=== PATIENT | female | born 1985 | race Caucasian/White ===

== ENCOUNTER 2021-10-05 13:39 | Outpatient (REF) | payer OTHER, SELFPAY ==
[2021-10-11 12:56] LABS: HPV mRNA E6/E7 rflx Not Detected (Not Detected)
== END 2021-10-05 13:40 | disposition home or self-care (01) ==
LOC: HO.LAB 13:39
PROVIDERS: Visit Provider Advanced Practice Midwife
DX: Z01.419 Encounter for gynecological examination (general) (routine) without abnormal findings (principal); Z11.51 Encounter for screening for human papillomavirus (HPV); Z88.1 Allergy status to other antibiotic agents; Z91.040 Latex allergy status; Z97.5 Presence of (intrauterine) contraceptive device
CPT/HCPCS: 87624; 88142

== ENCOUNTER 2022-10-11 09:40 | Outpatient (REF) | payer OTHER, SELFPAY ==
[2022-10-11 11:25] LABS: HBc Num1 0.09 S/CO (0.00-0.79); HIV AB/AG Nonreactive (Nonreactive); HIV Num 1 0.06 S/CO (0.00-0.99); Hepatitis B Core Antibody Nonreactive (Nonreactive); ~HepC Num1 0.06 S/CO (0.00-0.79); ~Hepatitis C Antibody Nonreactive (Nonreactive)
== END 2022-10-11 09:41 | disposition home or self-care (01) ==
LOC: HO.LAB 09:40
PROVIDERS: Visit Provider Advanced Practice Midwife
DX: Z20.2 Contact with and (suspected) exposure to infections with a predominantly sexual mode of transmission (principal); Z11.4 Encounter for screening for human immunodeficiency virus [HIV]
CPT/HCPCS: 36415; 86704; 86803; 87389

== ENCOUNTER 2023-11-21 10:18 | Outpatient (AMB) | payer OTHER, SELFPAY ==
--- NOTE | 2023-11-21 10:21 | A.OFFVIS_ITS ---
Intake Vital Signs 11/21/23 10:22 Height 5 ft 5 in Weight 159 lb BMI 26.5 BP 104/60 Intake Visit Reasons: Annual Supervisor Instrument Mechanics: Supervisor Instrument Mechanics Present (Maria L) Allergies erythromycin base [ERYTHROMYCIN BASE] Allergy (Mild, Verified 11/21/23 10:22) RASH latex [LATEX] Allergy (Mild, Verified 11/21/23 10:22) ITCHING HPI HPI Comments History of Present Illness Details She is a premenopausal woman presenting for annual examination. Doing well with no concerns. Rectal bleeding for a few months, after episode of loose stools and Covid, looking for a PCP for a referal. She tries to eat healthy and stays active with exercise. Rare bleeding with her Nery IUD. Currently is sexually active. She denies vaginal itching and irritation. STI screening offered; she declines. Denies family history of breast, ovarian or colon cancer. Last pap smear 2021, negative. 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[employer] Sexual orientation: Straight/Heterosexual Gender identity: Female Female Reproductive History Menstrual control method: progestin IUCD (Mirena 11/07/17) Total pregnancies: 3 Full term: 2 Number of Living Children: 2 Date of last pap smear: 10/05/21 (neg pap and hpv) Review of Systems Const All systems reviewed & are unremarkable except as noted in HPI and below Reports as per HPI Eyes Reports no additional complaints ENT Reports no additional complaints Card Reports no additional complaints Resp Reports no additional complaints GI Reports as per HPI and Reports no additional complaints Reports as per HPI Musc Reports no additional complaints Skin/Breast Reports as per HPI Neuro Reports no additional complaints Psych Reports no additional complaints Endo Reports no additional complaints Trino/Lymph Reports no additional complaints Aller/Immun Reports no additional complaints Physical Exam Vital Signs: Last Vital Signs BP 104/60 11/21/23 10:22 BMI result Body Mass Index 26.5 Const General: cooperative, healthy appearing, no acute distress, well developed and alert Orientation/consciousness: patient oriented x3 HEENT Head: Yes normal to inspection Eyes General: appearance normal, both eyes and all related structures Neck Neck: Yes normal visual inspection Thyroid: Thyroid normal Chest Chest palpation & inspection: normal inspection of the chest and other (no puckering, dimpling, peau de orange, retraction, discharge, masses) Breast/axilla inspection: normal inspection of the breasts Breast/axilla palpation: normal palpation of the breasts Resp Effort & Inspection: normal respiratory effort GI Inspection: Yes normal to inspection Palpation (GI): Soft to palpation Rectal Exam - Female: deferred General: Yes bladder normal to palpation External Female Exam: normal external appearance and normal appearance of the urethra Speculum Exam - Vagina: normal appearance of the vagina, normal palpation and normal vaginal discharge Speculum Exam - Cervix: normal appearance of the cervix, normal palpation and Other cervical findings present (IUD string short at os) Bimanual exam- vagina & uterus: normal bimanual exam, normal palpation, uterine size normal, bladder normal to palpation, normal palpation and non-tender Bimanual Exam- Adnexa, other: no masses Skin General skin exam: no rashes or lesions noted Rashes: no rashes Neuro General: patient oriented x3 Cognition (Neuro): normal cognition Extrem General: Yes normal to inspection Psych Attitude: cooperative Thought process: Normal thought process present Assessment & Plan Assessment & Plan (1) Encounter for well woman exam with routine gynecological exam: Code(s): Z01.419 - Encounter for gynecological examination (general) (routine) without abnormal findings Plan Discussed: Current recommendations for pap smears per ASCCP guidelines. Breast awareness and periodic breast exams. Maintain a healthy lifestyle including a well balanced diet and routine exercise. Referral to GI placed. Patient verbalizes understanding and agrees to the plan of care. She was given opportunity to ask questions and all questions were answered to the best of my ability. RTO in one year for annual negative restorer examination. This note is constructed using voice recognition software. While every effort has been made to ensure accuracy, special education science teacher errors may have been included. Orders: Orders MM tomosynthesis screening BI 06/23/24 Z12.31 - Encounter for screening mammogram for malignant neoplasm of breast Referrals Gastroenterology Referral K62.5 - Hemorrhage of anus and rectum Coding Level of Care Code Est Pt Prev Care 18-39y(49350) Diagnoses Encounter for well woman exam with routine gynecological exam Z01.419
[2023-11-21 10:22] VITALS: BP 104/60; BMI 26.5
== END 2023-11-21 10:48 | disposition home or self-care (01) ==
LOC: HO.HWS 10:19
PROVIDERS: Visit Provider Advanced Practice Midwife
DX: Z01.419 Encounter for gynecological examination (general) (routine) without abnormal findings (principal)
CPT/HCPCS: 99395

== ENCOUNTER → 2023-11-21 10:18 | Outpatient (BNVA) | payer OTHER, SELFPAY | PROVIDERS: Visit Provider Advanced Practice Midwife ==

== ENCOUNTER 2023-12-19 10:11 | Outpatient (AMB) | payer OTHER, SELFPAY ==
--- NOTE | 2023-12-19 10:15 | A.OFFVIS_ITS ---
Intake Vital Signs 12/19/23 10:16 Height 5 ft 5 in Weight 153 lb BMI 25.5 BP 125/87 Blood Pressure Location Lt brachial Position Sitting Pulse 105 H Intake Visit Reasons: Hemorrhage of anus and rectum Intake Note: Patient new consult for Hemorrhage of anus rectum Patient cc: bright rectal bleeding on and off, abdominal bloating, hemorrhoids but patient said the blood is not from that denies any other GI issues Labor Arbitrator Hearing Office Required: No Accompanied by: Self / Same As Patient Allergies erythromycin base [ERYTHROMYCIN BASE] Allergy (Mild, Verified 12/19/23 10:15) RASH latex [LATEX] Allergy (Mild, Verified 12/19/23 10:15) ITCHING HPI HPI Comments History of Present Illness Details A 38 y/o female BRBPR-she has blood actually in the stool-bloating - softer stool- she does have hemorrhoids- this is different- since September-this is anxiety producing No fam hx IBD- Appetite is good no other GI concerns No respiratory or cardiac No nausea, vomiting, hematemesis, fever or chills PFSH Surgical History Hx of section Hx of dilation and curettage Social History Household Members Other:: 2 kids Alcohol intake: current Alcohol intake frequency: a few times a week Patient Tobacco Use Status: Never used Tobacco Current occupational status: employed 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 Gender identity: Female Review of Systems Const All systems reviewed & are unremarkable except as noted in HPI and below Card Denies chest pain and Denies dyspnea Resp Denies dyspnea GI Denies abdominal pain and Reports hematochezia Physical Exam Vital Signs: Last Vital Signs Pulse 105 H 12/19/23 10:16 BP 125/87 12/19/23 10:16 BMI result Body Mass Index 25.5 Const General: cooperative, healthy appearing, comfortable, no acute distress and anxious Orientation/consciousness: patient oriented x3 Limitations: no limitations Resp Effort & Inspection: normal respiratory effort and able to speak in complete sentences Auscultation: clear to auscultation bilaterally, no rales, no rhonchi and no wheezes GI Palpation (GI): Soft to palpation and nontender Auscultation: normal bowel sounds Skin General skin exam: no rashes or lesions noted Neuro General: patient oriented x3 Extrem General: Yes full ROM Psych Appearance: grossly normal and well kempt Mental Status: mental status grossly normal Speech and movement: Normal speech and movement present Affect: normal affect Attitude: cooperative Thought process: Normal thought process present Thought content: Normal thought content present Assessment & Plan Assessment & Plan (1) Rectal bleeding: Comment: Very pleasant 38-year-old female hematochezia past few months- May be hemorrhoidal, rule out IBD Code(s): K62.5 - Hemorrhage of anus and rectum (2) Hematochezia: Code(s): K92.1 - Melena Plan: fecal marco CBC CMP ESR Plan dx Colonoscopy Orders: Orders Comprehensive Met. Panel 12/19/23 K58.9 - Irritable bowel syndrome without diarrhea Calprotectin, Fecal 12/19/23 K62.5 - Hemorrhage of anus and rectum, K92.1 - Melena C Reactive Protein 12/19/23 K62.5 - Hemorrhage of anus and rectum, K92.1 - Me magui Complete Blood Count Auto Diff 12/19/23 K62.5 - Hemorrhage of anus and rectum Erythrocyte Sedimentation Rate 12/19/23 K62.5 - Hemorrhage of anus and rectum, K92.1 - Melena Medications: New bisacodyl (Dulcolax (bisacodyl)) Day before procedure @ 12 noon Take 4 tablets by mouth followed by large glass of water 20 mg (4 x 5 mg) PO ONCE PRN 4 tabs 0RF colonoscopy prep 1 day Z12.11 - Encounter for screening for malignant neoplasm of colon polyethylene glycol 3350 (Miralax) Take as directed by mouth the day before your procedure. 238 grams PO ONCE PRN 238 grams 0RF laxative effect 1 day Patient Instructions: Diagnostic colonoscopy r/o IBD-maybe hemorrhoidal MiraLax Gatorade prep-reviewed literature given fecal marco CBC CMP ESR Encouraged to call questions or concerns Coding Level of Care Code Tele New Pt Level 3 (35382) Diagnoses Rectal bleeding K62.5 Hematochezia K92.1 Time Spent (min) 30
[2023-12-19 10:16] VITALS: BP 125/87; PULSE 105; BMI 25.5
== END 2023-12-19 11:08 | disposition home or self-care (01) ==
PROVIDERS: Visit Provider Physician Assistant
DX: K62.5 Hemorrhage of anus and rectum (principal)
CPT/HCPCS: 99203

== ENCOUNTER 2023-12-19 10:11 | Outpatient (REF) | payer OTHER, SELFPAY ==
[2023-12-19 11:43] LABS: MANUAL DIFF FLAG NO
[2023-12-19 12:19] LABS: Basophils Percent Auto 0.5 % (0-2); Eosinophils Absolute Auto 0.1 X10*3/uL (0.0-0.4); Hematocrit 43.8 % (37.0-47.0); Hemoglobin 14.6 g/dl (12.0-16.0); Imm Gran Abs Auto 0.02 X10*3/uL (0.00-0.03); Imm Gran Pct Auto 0.3 % (0.0-0.4); Lymphocytes Absolute Auto 1.8 X10*3/uL (1.2-4.9); Lymphocytes Percent Auto 29.1 % (20-40); Mean Corpuscular HGB Conc 33.3 g/dl (31.0-35.0); Mean Corpuscular Hemoglobin 30.3 pg (27.0-33.0); Mean Corpuscular Volume 90.9 fL (80.0-98.0); Mean Platelet Volume 9.5 fL (9.4-12.3); Monocytes Absolute Auto 0.4 X10*3/uL (0.1-1.2); Monocytes Percent Auto 6.9 % (2-11); Neutrophils Absolute Auto 3.8 x10*3/uL (2.0-8.3); Neutrophils Percent Auto 62.2 % (45-73); Platelet Count 314 X10*3/uL (160-400); Red Blood Count 4.82 X10*6/uL (4.20-5.50); Red Cell Distribution Width 11.9 % (11.0-16.0); White Blood Count 6.1 X10*3/uL (4.8-10.8)
[2023-12-19 12:54] LABS: Alanine Aminotransferase 13 U/L (0-31); Albumin Level 4.3 g/dL (3.5-5.0); Alkaline Phosphatase 55 U/L (39-117); Anion Gap 14 (12-20); Aspartate Amino Transferase 16 U/L (5-31); Bilirubin Total 0.3 mg/dL (0.0-1.0); Blood Urea Nitrogen 12 mg/dL (9-16); C Reactive Protein < 0.04 mg/dL (< or = 0.50); Calcium 9.4 mg/dL (8.4-10.2); Carbon Dioxide 26 mmol/L (22-29); Chloride 106 mmol/L (96-108); Estimated Glomerular Filt Rate > 60; Glucose Random 93 mg/dL (60-115); Potassium 4.7 mmol/L (3.3-5.1); Sodium 141 mmol/L (135-145); Total Protein 7.3 g/dL (6.5-8.0)
[2023-12-19 13:02] LABS: Erythrocyte Sedimentation Rate 4 MM/HR (0-20)
== END 2023-12-19 10:12 | disposition home or self-care (01) ==
LOC: HO.LAB 10:11
PROVIDERS: Visit Provider Physician Assistant
DX: K62.5 Hemorrhage of anus and rectum (principal); K58.9 Irritable bowel syndrome, unspecified
CPT/HCPCS: 36415; 80053; 85025; 85652; 86140

== ENCOUNTER 2024-04-16 09:40 | Day surgery (SDC) | payer OTHER, SELFPAY ==
[2024-04-14 14:32] VITALS: BMI 25.5
--- NOTE | 2024-04-14 14:52 | HO.ANESPROP2 ---
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 Gender identity: Female Meds Allergies Allergy/AdvReac Type Severity Reaction Status Date / Time erythromycin base Allergy Mild RASH Verified 12/19/23 10:15 [ERYTHROMYCIN BASE] latex [LATEX] Allergy Mild ITCHING Verified 12/19/23 10:15 Home Medications ?Medication ?Instructions ?Recorded ?Confirmed ?Last Taken ?Type levonorgestrel 21 mcg/24 hr (up to intrauterine 10/11/22 Unknown History 8 years) 52 mg intrauterine device (Mirena) Exam Height,Weight and Vital Signs: Height 5 ft 5 in Weight 69.4 kg Documented by User: Elke Topete MD 04/16/24 09:35 PMF Family History Family history of problems with anesthesia: No Surgical History Surgical History Hx of section Hx of dilation and curettage History of Problems with Anesthesia: No Social History Social History Household Members Other:: 2 kids Alcohol intake: current Alcohol intake frequency: a few times a week Patient Tobacco Use Status: Never used Tobacco Current occupational status: employed 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 Gender identity: Female Meds Allergies Allergy/AdvReac Type Severity Reaction Status Date / Time erythromycin base Allergy Mild RASH Verified 12/19/23 10:15 [ERYTHROMYCIN BASE] latex [LATEX] Allergy Mild ITCHING Verified 12/19/23 10:15 Home Medications ?Medication ?Instructions ?Recorded ?Confirmed ?Last Taken ?Type levonorgestrel 21 mcg/24 hr (up to intrauterine 10/11/22 Unknown History 8 years) 52 mg intrauterine device (Mirena) Exam Airway Mallampati Class: II TM Dist: >3cm Neck ROM: Full Heart: rrr Lungs: cta Assessment and Plan Assessment Anesthesia Assessment: Anesthesia Plan Discussed Final Anesthetic Review Family History of Problems with Anesthesia: No History of Problems with Anesthesia: No NPO: Yes ASA Class: I Final Preanesthetic Review: No Changes in Pt Med Stat, Meds/Allgs Chart Reviewed, Consent Obtained/Reviewed and Anes Risks/Benef Reviewed Patient Risk: Low Procedure Risk: Low Anesthetic Plan Anesthetic Plan: MAC: Disposition: Standard PACU
[2024-04-16 09:53] VITALS: BMI 25.9
--- NOTE | 2024-04-16 10:19 | MHC.SHP ---
Pre-Procedural Eval Section A - 24 Hr Update-Section A only Date of Service: 04/16/24 Section B - Complete if H&P > 30 days Chief Complaint: Hemorrhage of anus and rectum Relevant Family History (Specify if Yes): No Relevant Social History: None Present Medications: see Short Stay Collaborative assessment Medical History: No relevant PMH History of Previous Operations: Relevant previous surgery/procedure and date(s) (Hx of section Hx of dilation and curettage) Allergies: Allergies Allergy/AdvReac Type Severity Reaction Status Date / Time erythromycin base Allergy Mild RASH Verified 12/19/23 10:15 [ERYTHROMYCIN BASE] latex [LATEX] Allergy Mild ITCHING Verified 12/19/23 10:15 Review of Systems Sugical H&P ROS: Negative: Constitution, Cardiovascular, Respiratory, Neurological, Psychiatric, Hem-Onc, Allergic/Immunologic, Gastrointestinal, Genitourinary, Musculoskeletal, Integumentary, Endocrine and Eyes/Ears/Nose/Throat Exam Surgical H&P Exam: Normal: HEENT, Normal: Heart, Normal: Lungs, Normal: Extremities, Normal: Abdomen, Normal: Skin and Normal: Neurological Plan Diagnosis/Plan: Unchanged I have reviewed the history and physical and performed a pertinent physical examination on my patient. No changes have occurred unless specified. Time Spent With Patient Time: Total time managing care of this patient today ____ minutes.
[2024-04-16 10:20] VITALS: BP 123/81; PULSE 78; RESP 16; TEMP 36.7; O2SAT 100
[2024-04-16] MEDS: Lactated Ringers 1,000 ML 100 ML IVCONT (10:23)
[2024-04-16 10:36] LABS: UPreg QC Valid YES; Urine Pregnancy NEGATIVE (NEGATIVE)
--- NOTE | 2024-04-16 11:22 | HO.OPN-COLON ---
Colonoscopy Operative Note Operative Note Date of Service: 04/16/24 Narrative: Operative Information Procedure Description: Colonoscopy Indication: rectal bleeding Anesthesia: MAC COLONOSCOPY Instrument: Olympus variable stiffness pediatric scope 190L Colonoscopy Monitoring: Vital signs and clinical assessment, continuous EKG monitoring, Pulse oximetry, Carbon Dioxide monitoring and blood pressure monitoring were done throughout the procedure. Colon withdrawal time was 23 minutes. Procedure: The patient was placed in the left lateral decubitis position and pre-procedure medications were administered. After a digital rectal examination of the ano-rectum, the video colonoscope was inserted into the rectum and advanced through the colon to the cecum/TI. The colonoscope was slowly withdrawn in a retrograde panoramic fashion and the colon mucosa was carefully examined including a retroflexed view of the rectum. Findings and interventions are described below. Procedure Difficulty: moderate, tortuous redundant colon Findings: Terminal Ileum-normal Cecum:normal Ascending Colon: normal Transverse Colon - x1 flat granular polyp, laterally spreading 2 cm, lifted with eleview and removed piece meal with cold and hot snare with x 2 ultra clips placed. Another adjacent lateral granular spreading flat polyp 2 cm lifted with eleview and then removed with hot snare with x 2 ultra clips applied to close defect, retrieved with net Descending Colon:normal Sigmoid Colon: 7-8 mm sessile polyp removed with cold snare Rectum: Retroflexion with small inflammed internal hemorrhoids seen, grade I Anorectum - normal Intervention: cold snare, hot snare, eleview injection, clips Colon preparation: Hickman Bowel Preparation Scale Right colon; 3 Transverse colon: 3 Left colon; 3 (0 = Unprepared colon segment with mucosa not seen due to solid stool that cannot be cleared. 1 = Portion of mucosa of the colon segment seen, but other areas of the colon segment not well seen due to staining, residual stool and/or opaque liquid. 2 = Minor amount of residual staining, small fragments of stool and/or opaque liquid, but mucosa of colon segment seen well. 3 = Entire mucosa of colon segment seen well with no residual staining, small fragments of stool or opaque liquid) Impression and Post Procedure Diagnosis: tortuous redundant colon colon polyps internal hemorrhoids Plan: High fiber diet leaflet Avoid straining at stool, epsom salts and sitz bath, anusol supps or cream Repeat Colonoscopy in 8-12 months due to subtle polyps or earlier if clinically indicated Above findings were reviewed with the patient and relevant handouts were provided if indicated.
[2024-04-16 12:07] VITALS: BP 110/64; PULSE 64; RESP 16; TEMP 36.4; O2SAT 97
[2024-04-16 12:22] VITALS: BP 119/70; PULSE 64; RESP 16; TEMP 36.4; O2SAT 97
== END 2024-04-16 13:11 | disposition home or self-care (01) ==
PROVIDERS: Nurse Practitioner; Visit Provider Internal Medicine Gastroenterology
PROC: 0DJD8ZZ Inspection of Lower Intestinal Tract, Via Natural or Artificial Opening Endoscopic (ICD-10-PCS; CPT 45378; principal; 2024-04-16 10:30)
DX: K62.5 Hemorrhage of anus and rectum (principal); D12.3 Benign neoplasm of transverse colon; K63.5 Polyp of colon; K64.0 First degree hemorrhoids; Q43.8 Other specified congenital malformations of intestine; Z88.1 Allergy status to other antibiotic agents; Z91.040 Latex allergy status; Z98.890 Other specified postprocedural states
CPT/HCPCS: 45385; 45381; 81025; 88305; J2250; J2704

== ENCOUNTER → 2024-04-16 09:40 | Outpatient (BNV) | payer OTHER, SELFPAY | PROVIDERS: Visit Provider Internal Medicine Gastroenterology | DX: K62.5 Hemorrhage of anus and rectum (principal); D12.5 Benign neoplasm of sigmoid colon; K63.5 Polyp of colon; K64.0 First degree hemorrhoids | CPT/HCPCS: 45381; 45385 ==

== ENCOUNTER 2024-04-21 11:57 | Outpatient (REF) | payer OTHER, SELFPAY ==
[2024-04-21 12:16] LABS: MANUAL DIFF FLAG NO
[2024-04-21 12:53] LABS: Basophils Percent Auto 0.6 % (0-2); Eosinophils Absolute Auto 0.1 X10*3/uL (0.0-0.4); Eosinophils Percent Auto 1.7 % (0-4); Hematocrit 38.5 % (37.0-47.0); Hemoglobin 12.9 g/dl (12.0-16.0); Imm Gran Abs Auto 0.04 X10*3/uL (0.00-0.03); Imm Gran Pct Auto 0.6 % (0.0-0.4); Lymphocytes Absolute Auto 1.3 X10*3/uL (1.2-4.9); Lymphocytes Percent Auto 18.6 % (20-40); Mean Corpuscular HGB Conc 33.5 g/dl (31.0-35.0); Mean Corpuscular Hemoglobin 30.8 pg (27.0-33.0); Mean Corpuscular Volume 91.9 fL (80.0-98.0); Mean Platelet Volume 9.4 fL (9.4-12.3); Monocytes Absolute Auto 0.5 X10*3/uL (0.1-1.2); Monocytes Percent Auto 6.5 % (2-11); Neutrophils Absolute Auto 5.2 x10*3/uL (2.0-8.3); Platelet Count 318 X10*3/uL (160-400); Red Blood Count 4.19 X10*6/uL (4.20-5.50); Red Cell Distribution Width 11.8 % (11.0-16.0); White Blood Count 7.2 X10*3/uL (4.8-10.8)
[2024-04-21 13:39] LABS: Alanine Aminotransferase 13 U/L (0-31); Albumin Level 4.1 g/dL (3.5-5.0); Alkaline Phosphatase 55 U/L (39-117); Anion Gap 14 (12-20); Aspartate Amino Transferase 15 U/L (5-31); Bilirubin Total 0.4 mg/dL (0.0-1.0); Blood Urea Nitrogen 7 mg/dL (9-16); C Reactive Protein 8.41 mg/dL (< or = 0.50); Calcium 9.8 mg/dL (8.4-10.2); Carbon Dioxide 26 mmol/L (22-29); Chloride 102 mmol/L (96-108); Estimated Glomerular Filt Rate > 60; Glucose Random 95 mg/dL (60-115); Potassium 4.2 mmol/L (3.3-5.1); Sodium 138 mmol/L (135-145); Total Protein 7.2 g/dL (6.5-8.0)
== END 2024-04-21 11:58 | disposition home or self-care (01) ==
LOC: HO.LAB 11:57
PROVIDERS: Visit Provider Internal Medicine Gastroenterology
DX: K92.1 Melena (principal)
CPT/HCPCS: 36415; 80053; 85025; 86140

== ENCOUNTER 2024-04-21 12:22 | Outpatient (AMB) | payer OTHER, SELFPAY ==
--- NOTE | 2024-04-21 12:23 | A.OFFVIS_ITS ---
Vital Signs 04/21/24 12:24 Height 5 ft 5 in Weight 152 lb 1.903 oz BMI 25.3 BP 126/82 Blood Pressure Location Lt brachial Position Sitting Pulse 104 H Intake Visit Reasons: Provider requested Intake Note: Afsaneh presents in the office as a follow up requested from Dr. Robert. CC: She states that she is feeling better now. Allergies erythromycin base [ERYTHROMYCIN BASE] Allergy (Mild, Verified 04/21/24 12:27) RASH latex [LATEX] Allergy (Mild, Verified 04/21/24 12:27) ITCHING HPI HPI Provider requested: Details: 38 yr old f here for post procedure f/u She had colonoscopy 04/16/24 for Ix of rectal bleeding x2 large SSP removed with a hyperplastic polyp and internal hemorrhoids noted--clips applied to close defects I called her on Sunday to update on results and also to check up as prominent fatty tissue noted on the excised specimen During the marco she mentioned she noted low grade fever and upper abdominal pain, but her abdomen was not hard or rigid. 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 She took the Abx over the weekend and feels much improved. passing some gas, no further fever, pain is much diminished -almost gone now Labs ordered today with nml wcc, CMP but raised CRP. EXAM: GENERAL: The patient is well developed and nontoxic. VITAL SIGNS:see workflow HEENT: Nonicteric sclerae, PERRLA, EOMI. Oropharynx clear. Moist mucous membranes. Conjunctivae appear well perfused. No thyroid mass. CHEST: Chest wall is nontender. HEART: Regular rate and rhythm without murmurs. LUNGS: Clear to auscultation bilaterally. ABDOMEN: Soft, positive bowel sounds, mildly tender epigastrium, no organomegaly.no flank tenderness SKIN: No rash, no excessive bruising, petechiae, or purpura. NEUROLOGIC: Cranial nerves II-XII intact without motor/sensory deficit. 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, she has no features of peritonitis, micorperf, feels much improved with ABX but CRP is high, 2/ Sessile serrated polyps, large PLAN: 1/ Discussed abt a CT scan for further eval but given her improvement she wants to hold off, will recheck CRP in few days to make sure down trending, in meantime if any worsening of sx, come to ED [facility]--finish augmentin course 2/ repeat colonoscopy in about 8-12 months, too early to say but might have sessile serrated polyposis syndrome PFSH Surgical History Hx of colonoscopy Hx of section Hx of dilation and curettage Social History Household Members Other:: 2 kids Alcohol intake: current Alcohol intake frequency: a few times a week Patient Tobacco Use Status: Never used Tobacco Current occupational status: employed 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 Panel 2 Days K75.81 - Nonalcoholic steatohepatitis (BERNAL), R10.9 - Unspecified abdominal pain C Reactive Protein 2 Days R10.9 - Unspecified abdominal pain Coding Level of Care Code Est Pt Level 3 (29605) Diagnoses Abdominal pain R10.9
[2024-04-21 12:24] VITALS: BP 126/82; PULSE 104; BMI 25.3
== END 2024-04-21 12:46 | disposition home or self-care (01) ==
PROVIDERS: Visit Provider Internal Medicine Gastroenterology
DX: R10.9 Unspecified abdominal pain (principal)
CPT/HCPCS: 99213

== ENCOUNTER 2024-04-23 13:41 | Outpatient (REF) | payer OTHER, SELFPAY ==
[2024-04-23 14:43] LABS: Basophils Absolute Auto 0.1 X10*3/uL (0.0-0.2); Basophils Percent Auto 0.6 % (0-2); Eosinophils Absolute Auto 0.3 X10*3/uL (0.0-0.4); Eosinophils Percent Auto 2.8 % (0-4); Hematocrit 39.8 % (37.0-47.0); Hemoglobin 13.1 g/dl (12.0-16.0); Imm Gran Abs Auto 0.06 X10*3/uL (0.00-0.03); Imm Gran Pct Auto 0.6 % (0.0-0.4); Lymphocytes Absolute Auto 2.9 X10*3/uL (1.2-4.9); Lymphocytes Percent Auto 29.6 % (20-40); MANUAL DIFF FLAG SCAN; Mean Corpuscular HGB Conc 32.9 g/dl (31.0-35.0); Mean Corpuscular Volume 94.3 fL (80.0-98.0); Mean Platelet Volume 9.2 fL (9.4-12.3); Monocytes Absolute Auto 0.5 X10*3/uL (0.1-1.2); Monocytes Percent Auto 5.4 % (2-11); Platelet Count 373 X10*3/uL (160-400); Red Blood Count 4.22 X10*6/uL (4.20-5.50); Red Cell Distribution Width 11.8 % (11.0-16.0); SCAN SMEAR FLAG 1; White Blood Count 9.9 X10*3/uL (4.8-10.8)
[2024-04-23 15:05] LABS: Alanine Aminotransferase 12 U/L (0-31); Albumin Level 4.1 g/dL (3.5-5.0); Alkaline Phosphatase 56 U/L (39-117); Anion Gap 12 (12-20); Aspartate Amino Transferase 13 U/L (5-31); Bilirubin Total 0.2 mg/dL (0.0-1.0); Blood Urea Nitrogen 7 mg/dL (9-16); C Reactive Protein 2.61 mg/dL (< or = 0.50); Carbon Dioxide 27 mmol/L (22-29); Chloride 105 mmol/L (96-108); Estimated Glomerular Filt Rate > 60; Glucose Random 78 mg/dL (60-115); Potassium 4.4 mmol/L (3.3-5.1); Sodium 140 mmol/L (135-145); Total Protein 7.1 g/dL (6.5-8.0)
[2024-04-23 15:36] LABS: SLIDE REVIEW VERIFIED
== END 2024-04-23 13:42 | disposition home or self-care (01) ==
LOC: HO.LAB 13:41
PROVIDERS: Visit Provider Internal Medicine Gastroenterology
DX: R10.9 Unspecified abdominal pain (principal); K75.81 Nonalcoholic steatohepatitis (NASH)
CPT/HCPCS: 36415; 80053; 85025; 86140

== ENCOUNTER 2024-07-16 15:04 | Outpatient (REF) | payer OTHER, SELFPAY ==
--- NOTE | ~2024-07-16 | MM_ITS ---
EXAMINATION: MM SCREENING DIGITAL BREAST TOMOSYNTHESIS, BILATERAL CLINICAL INFORMATION: Screening. Asymptomatic. COMPARISON: Mammography: Comparison is made with available priors TECHNIQUE: Digital breast mammography with tomosynthesis is performed in both the craniocaudal and mediolateral oblique views along with computer-aided detection (CAD). FINDINGS: There are scattered areas of fibroglandular density (ACR BI-RADS breast composition Category b). There are no significant masses, abnormal calcifications, or other abnormalities. MM/MM tomosynthesis screening BI IMPRESSION: No mammographic evidence of malignancy. ASSESSMENT: BI-RADS BI-RADS 1 - Negative RECOMMENDATION: Routine annual mammography screening. 1 year F/U This examination should not preclude the clinical evaluation of a suspicious palpable abnormality. This patient's information was entered into a reminder system with a target due date for their next mammogram. Electronically signed by: Olena Guerrier DO 07/25/2024 10:01 AM [facility]
== END 2024-07-16 15:05 | disposition home or self-care (01) ==
LOC: HO.MAMMO 15:04
PROVIDERS: Visit Provider Advanced Practice Midwife
DX: Z12.31 Encounter for screening mammogram for malignant neoplasm of breast (principal)
CPT/HCPCS: 77063; 77067

== ENCOUNTER → 2024-07-16 15:30 | Outpatient (BNV) | payer OTHER, SELFPAY | PROVIDERS: Visit Provider Internal Medicine | DX: Z12.31 Encounter for screening mammogram for malignant neoplasm of breast (principal) | CPT/HCPCS: 77063; 77067 ==

== ENCOUNTER 2024-12-03 08:48 | Outpatient (AMB) | payer OTHER, SELFPAY ==
--- NOTE | 2024-12-03 08:49 | A.OFFVIS_ITS ---
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 Doing well with [] synchro assembler concerns. Random bleeding with the Mirena, due for an exchange 10/2024, considering a vasectomy. She denies vaginal itching and irritation. STI screening offered; she accepts. She tries to eat healthy and stays active with exercise-walking/hiking. Denies family history of breast, ovarian or colon cancer. Last pap smear 2021, negative. Mammogram: 2023. 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 [employer] Sexual orientation: Straight/Heterosexual Gender identity: Female Female Reproductive History Menstrual control method: progestin IUCD (Mirena 11/07/17) Total pregnancies: 3 Full term: 2 Number of Living Children: 2 Date of last pap smear: 10/05/21 (neg pap and hpv) Date of Mammogram: 07/16/24 (Birad 1) Review of Systems Const All systems reviewed & are unremarkable except as noted in HPI and below Reports as per HPI Eyes Reports no additional complaints ENT Reports no additional complaints Card Reports no additional complaints Resp Reports no additional complaints GI Reports as per HPI and Reports no additional complaints Reports as per HPI Musc Reports no additional complaints Skin/Breast Reports as per HPI Neuro Reports no additional complaints Psych Reports no additional complaints Endo Reports no additional complaints Trino/Lymph Reports no additional complaints Aller/Immun Reports no additional complaints Physical Exam Vital Signs: Last Vital Signs BP 110/62 12/03/24 08:51 BMI result Body Mass Index 27.1 Const General: cooperative, healthy appearing, no acute distress, well developed and alert Orientation/consciousness: patient oriented x3 HEENT Head: Yes normal to inspection Eyes General: appearance normal, both eyes and all related structures Neck Neck: Yes normal visual inspection Thyroid: Thyroid normal Chest Chest palpation & inspection: normal inspection of the chest and other (no puckering, dimpling, peau de orange, retraction, discharge, masses) Breast/axilla inspection: normal inspection of the breasts Breast/axilla palpation: normal palpation of the breasts Resp Effort & Inspection: normal respiratory effort GI Inspection: Yes normal to inspection and Yes scar Palpation (GI): Soft to palpation Rectal Exam - Female: deferred General: Yes bladder normal to palpation External Female Exam: normal external appearance and normal appearance of the urethra Speculum Exam - Vagina: normal appearance of the vagina, normal palpation and normal vaginal discharge Speculum Exam - Cervix: normal appearance of the cervix, normal palpation and Other cervical findings present (IUD strings teased down with a Cytobrush) Bimanual exam- vagina & uterus: normal bimanual exam, normal palpation, uterine size normal, bladder normal to palpation, normal palpation and non-tender Bimanual Exam- Adnexa, other: no masses Skin General skin exam: no rashes or lesions noted Rashes: no rashes Neuro General: patient oriented x3 Cognition (Neuro): normal cognition Extrem General: Yes normal to inspection Psych Attitude: cooperative Thought process: Normal thought process present Assessment & Plan Assessment & Plan (1) Encounter for well woman exam with routine gynecological exam: Code(s): Z01.419 - Encounter for gynecological examination (general) (routine) without abnormal findings Category: Medical Plan Discussed: Current recommendations for pap smears per ASCCP guidelines. Breast awareness and periodic breast exams. Mammogram yearly. Order placed. Maintain a healthy lifestyle including a well balanced diet and routine exercise. Call ahead for [facility] - Eye Tracking for October of 2025. Patient verbalizes understanding and agrees to the plan of care. She was given opportunity to ask questions and all questions were answered to the best of my ability. RTO in one year for annual synchro assembler examination. This note is constructed using voice recognition software. While every effort has been made to ensure accuracy, warble saw operator errors may have been included. Orders: Orders MM tomosynthesis screening BI Today Z12.31 - Encounter for screening mammogram for malignant neoplasm of breast Coding Level of Care Code Est Pt Prev Care 40-64y(66414) Diagnoses Encounter for well woman exam with routine gynecological exam Z01.419
[2024-12-03 08:51] VITALS: BP 110/62; BMI 27.1
== END 2024-12-03 09:51 | disposition home or self-care (01) ==
LOC: HO.HWS 08:48
PROVIDERS: Visit Provider Advanced Practice Midwife
DX: Z01.419 Encounter for gynecological examination (general) (routine) without abnormal findings (principal)
CPT/HCPCS: 99396; 99459

== ENCOUNTER → 2024-12-03 08:48 | Outpatient (BNVA) | payer OTHER, SELFPAY | PROVIDERS: Visit Provider Advanced Practice Midwife ==

== ENCOUNTER 2025-03-25 09:29 | Day surgery (SDC) | payer OTHER, SELFPAY ==
[2025-03-23 14:12] VITALS: BMI 25.3
--- NOTE | 2025-03-24 09:13 | HO.ANESPROP2 ---
Documented by User: Britney Boswell NP 03/24/25 09:13 HPI - Anesthesia Eval Consult details Narrative: 39yo F for Colonoscopy PMFSH Active Problems Active Problems: All Active Problems Encounter for well woman exam with routine gynecological exam (Acute) Abdominal pain (Acute) Hematochezia (Acute) Rectal bleeding (Acute) Past Medical History Medical History (Updated 12/03/24 @ 09:15 by Lina Fisher CNM) IUD (intrauterine device) in place Family History Family history of problems with anesthesia: No Surgical History Surgical History (Updated 03/23/25 @ 14:11 by Raisa Grey RN) Hx of colonoscopy Hx of section Hx of dilation and curettage History of Problems with Anesthesia: No Social History Social History (Updated 12/03/24 @ 09:16 by Lina Fisher CNM) Household Members: Spouse Household Members Other:: son and daughter Alcohol intake: current Alcohol intake frequency: holidays/special occasions only Patient Tobacco Use Status: Never used Tobacco Have you been hit, kicked, punched, or otherwise hurt by someone within the past year? 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 Gender identity: Female Meds Allergies Allergy/AdvReac Type Severity Reaction Status Date / Time erythromycin base Allergy Mild RASH Verified 12/03/24 08:51 (ERYTHROMYCIN BASE) latex (LATEX) Allergy Mild ITCHING Verified 12/03/24 08:51 Home Medications ?Medication ?Instructions ?Recorded ?Confirmed ?Last Taken ?Type levonorgestrel 21 mcg/24 hr (up to 1 device intrauterine ONCE 10/11/22 03/23/25 Unknown History 8 years) 52 mg intrauterine device (Mirena) Exam Height,Weight and Vital Signs: Height 5 ft 5 in Weight 68.946 kg Assessment and Plan Assessment Anesthesia Assessment: Chart Reviewed Final Anesthetic Review Family History of Problems with Anesthesia: No History of Problems with Anesthesia: No Documented by User: Sergo Romo MD 03/25/25 12:01 [facility] Past Medical History Medical History (Updated 12/03/24 @ 09:15 by Lina Fisher CNM) IUD (intrauterine device) in place Patient : No Surgical History Surgical History (Updated 03/23/25 @ 14:11 by Raisa Grey RN) Hx of colonoscopy Hx of section Hx of dilation and curettage Social History Social History (Updated 12/03/24 @ 09:16 by Lina Fisher CNM) Household Members: Spouse Household Members Other:: son and daughter Alcohol intake: current Alcohol intake frequency: holidays/special occasions only Patient Tobacco Use Status: Never used Tobacco Have you been hit, kicked, punched, or otherwise hurt by someone within the past year? 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 Gender identity: Female Meds Allergies Allergy/AdvReac Type Severity Reaction Status Date / Time erythromycin base Allergy Mild RASH Verified 12/03/24 08:51 (ERYTHROMYCIN BASE) latex (LATEX) Allergy Mild ITCHING Verified 12/03/24 08:51 Home Medications ?Medication ?Instructions ?Recorded ?Confirmed ?Last Taken ?Type levonorgestrel 21 mcg/24 hr (up to 1 device intrauterine ONCE 10/11/22 03/23/25 Unknown History 8 years) 52 mg intrauterine device (Mirena) Exam Airway Mallampati Class: I TM Dist: >3cm Neck ROM: Full Loose/Missing/Broken Teeth: No Heart: ok Lungs: ok Assessment and Plan Assessment Anesthesia Assessment: Anesthesia Plan Discussed Final Anesthetic Review NPO: Yes ASA Class: II Final Preanesthetic Review: No Changes in Pt Med Stat, Meds/Allgs Chart Reviewed, Consent Obtained/Reviewed and Anes Risks/Benef Reviewed Patient Risk: Low Procedure Risk: Low Anesthetic Plan Anesthetic Plan: MAC: and Agree w/ Assess. and Plan Disposition: Standard PACU
[2025-03-25 09:33] VITALS: BP 114/64; PULSE 95; RESP 18; TEMP 36.4; O2SAT 99; BMI 25.9
[2025-03-25 09:53] LABS: UPreg QC Valid YES
[2025-03-25] MEDS: Lactated Ringers 1,000 ML 100 ML IVCONT (10:05)
--- NOTE | 2025-03-25 10:42 | MHC.SHP ---
Pre-Procedural Eval Section A - 24 Hr Update-Section A only Date of Service: 03/25/25 Section B - Complete if H&P > 30 days Chief Complaint: hx colon polyps Relevant Family History (Specify if Yes): No Relevant Social History: None Present Medications: see Short Stay Collaborative assessment Medical History: Significant History ( IUD (intrauterine device) in place) History of Previous Operations: Relevant previous surgery/procedure and date(s) ( Hx of colonoscopy Hx of section Hx of dilation and curettage) Allergies: Allergies Allergy/AdvReac Type Severity Reaction Status Date / Time erythromycin base Allergy Mild RASH Verified 12/03/24 08:51 (ERYTHROMYCIN BASE) latex (LATEX) Allergy Mild ITCHING Verified 12/03/24 08:51 Review of Systems Sugical H&P ROS: Negative: Constitution, Cardiovascular, Respiratory, Neurological, Psychiatric, Hem-Onc, Allergic/Immunologic, Gastrointestinal, Genitourinary, Musculoskeletal, Integumentary, Endocrine and Eyes/Ears/Nose/Throat Exam Surgical H&P Exam: Normal: HEENT, Normal: Heart, Normal: Lungs, Normal: Extremities, Normal: Abdomen, Normal: Skin and Normal: Neurological Plan Diagnosis/Plan: Unchanged I have reviewed the history and physical and performed a pertinent physical examination on my patient. No changes have occurred unless specified. Time Spent With Patient Time: Total time managing care of this patient today ____ minutes.
--- NOTE | 2025-03-25 11:51 | P.OPN-COLO_ITS ---
Colonoscopy Operative Note Operative Note Date of Service: 03/25/25 Narrative: Operative Information Procedure Description: Colonoscopy Indication: hx of polyps Anesthesia: MAC COLONOSCOPY Instrument: Olympus variable stiffness pediatric scope 190L Colonoscopy Monitoring: Vital signs and clinical assessment, continuous EKG monitoring, Pulse oximetry, Carbon Dioxide monitoring and blood pressure monitoring were done throughout the procedure. Colon withdrawal time was 20 minutes. Procedure: The patient was placed in the left lateral decubitis position and pre-procedure medications were administered. After a digital rectal examination of the ano-rectum, the video colonoscope was inserted into the rectum and advanced through the colon to the cecum/TI. The colonoscope was slowly withdrawn in a retrograde panoramic fashion and the colon mucosa was carefully examined including a retroflexed view of the rectum. Findings and interventions are described below. Procedure Difficulty: moderate due to looping and redundancy Findings: Terminal Ileum-normal Cecum:normal Ascending Colon: normal Transverse Colon - scar from prior resection site noted with some polypoid tissue surrounding it probably granulation tissue, lifted with eleview and then removed piece meal with cold snare and cold forceps with APC ablation to the site thereafter Descending Colon: flat polyp with lateral spreading granular appearance, lifted with eleview and removed with cold snare with edges and base ablated using APC. One clip applied for hemostasis. Sigmoid Colon: normal Rectum: Retroflexion with small internal hemorrhoids seen, grade I Anorectum - normal Intervention: eleview and cold snare for EMR at transverse and descending, with APC and clip Colon preparation: [place] Bowel Preparation Scale Right colon; 2 Transverse colon: 2 Left colon; 2 (0 = Unprepared colon segment with mucosa not seen due to solid stool that cannot be cleared. 1 = Portion of mucosa of the colon segment seen, but other areas of the colon segment not well seen due to staining, residual stool and/or opaque liquid. 2 = Minor amount of residual staining, small fragments of stool and/or opaque liquid, but mucosa of colon segment seen well. 3 = Entire mucosa of colon segment seen well with no residual staining, small fragments of stool or opaque liquid) Impression and Post Procedure Diagnosis: colon polyps internal hemorrhoids Plan: High fiber diet leaflet Avoid straining at stool, epsom salts and sitz bath, anusol supps or cream Repeat Colonoscopy in 1 year or earlier if clinically indicated, not quite meeting criteria for SSP syndrome but repeat in 1 year at least would be prudent will also give her a course of augmentin for 1 week Above findings were reviewed with the patient and relevant handouts were provided if indicated.
[2025-03-25 11:57] VITALS: BP 91/55; PULSE 70; RESP 16; TEMP 36.1; O2SAT 100
[2025-03-25 12:10] VITALS: BP 112/66; PULSE 69; RESP 16; TEMP 36.1; O2SAT 100
== END 2025-03-25 12:47 | disposition home or self-care (01) ==
PROVIDERS: Nurse Practitioner; Visit Provider Internal Medicine Gastroenterology
PROC: 0DJD8ZZ Inspection of Lower Intestinal Tract, Via Natural or Artificial Opening Endoscopic (ICD-10-PCS; CPT 45378; principal; 2025-03-25 11:30)
DX: Z12.11 Encounter for screening for malignant neoplasm of colon (principal); Z86.0101 Personal history of adenomatous and serrated colon polyps; D12.4 Benign neoplasm of descending colon; K63.5 Polyp of colon; K64.0 First degree hemorrhoids; Z88.1 Allergy status to other antibiotic agents; Z91.040 Latex allergy status; Z97.5 Presence of (intrauterine) contraceptive device
CPT/HCPCS: 45385; 45380; 45381; 81025; 88305; C1889; J2003; J2250; J2371; J2704

== ENCOUNTER → 2025-03-25 09:29 | Outpatient (BNV) | payer OTHER, SELFPAY | PROVIDERS: Visit Provider Internal Medicine Gastroenterology | DX: K63.5 Polyp of colon (principal); Z86.0100 Personal history of colon polyps, unspecified | CPT/HCPCS: 45381; 45388 ==

== ENCOUNTER 2025-07-22 09:57 | Outpatient (REF) | payer OTHER, SELFPAY | END 2025-07-22 09:58 | disposition home or self-care (01) | LOC: HO.MAMMO 09:57 | PROVIDERS: Visit Provider Advanced Practice Midwife | DX: Z12.31 Encounter for screening mammogram for malignant neoplasm of breast (principal) | CPT/HCPCS: 77063; 77067 ==

== ENCOUNTER → 2025-07-22 10:00 | Outpatient (BNV) | payer OTHER, SELFPAY | PROVIDERS: Visit Provider Radiology Body Imaging | DX: Z12.31 Encounter for screening mammogram for malignant neoplasm of breast (principal) | CPT/HCPCS: 77063; 77067 ==